=== PATIENT | male | born 1960 | race Caucasian/White ===

== ENCOUNTER 2017-07-24 18:32 | Observation (INO) | payer BC ==
[~2017-07-24 18:32] MED LIST: DIPRIVAN VIAL ONE; NEOSTIGMINE INJ ONE; NORCURON INJ 10 MG VIAL ONE; QUELICIN (OR ANECTINE) ONE; REGLAN INJ 10 MG VIAL ONE; ROBINUL ONE; SUPRANE IN ONE; VERSED ONE; XYLOCAINE 2 % (PLAIN) ONE; ZOFRAN INJ 4 MG VIAL ONE
[2017-07-24 18:39] VITALS: BMI 33.4
--- NOTE | 2017-07-24 18:53 | DR.ABDMALE ---
HPI - Time seen Time seen: 18:55 - PCP Primary Care Physician: rossana - HPI comment HPI Comment: PAIN ASSOCIATED WITH FEVER AND IS GETTING WORSE. - Complaint Chief Complaint Doctors Comments: RLQ ABDOMINAL PAIN SINCE THIS AM. Chief Complaint:: abd pain since this am, constant , and radiated to right side of abd. denies any n/v/d, last bm at lunch-normal. - Reviewed Nurses Notes Review: Yes - Mode of arrival Mode of Arrival: Ambulatory - Timing Onset of Chief Complaint: 07/24/17 Came on: Suddenly - Duration Duration: Constant Duration: Hours - Location Location: RLQ - Severity Severity: Moderate - Quality Quality: Sharp - Context Onset: Suddenly History of: None - Modifying factors Worsening Factors: Nothing Improving Factors: Nothing - Associated signs and symptoms Associated Signs and Symptoms: Other (FEVER) PMH - PMH Past Medical History: Yes Past Medical History: Hypertension Past Surgical History: Yes Surgical History: Ortho Surgery Past Surgical History Comment: rotator cuff bilat., hernia repair - Family History History of Family Medical Conditions: No - Social History Type of Tobacco Use: None Alcohol Use: Occasionally Do you use any recreational Drugs:: No Lives Where: Home - infectious screening Have you traveled outside the country in the last 6 months?: No Isolation: Standard ROS - Review of Systems Constitutional: Fever Eyes: No Symptoms Reported ENTM: No Symptoms Reported Respiratoy: No Symptoms Reported Cardiovascular: No Symptoms Reported Gastrointestinal/Abdominal: Abdominal Pain Neurological: No Symptoms Reported Musculoskeletal: No Symptoms Reported Integumentary: No Symptoms Reported Hematologic/Lymphatic: No Symptoms Reported Endocrine: No Symptoms Reported All Other Systems: Reviewed and Negative PE - Vital Signs Vital Signs: Temp Pulse Resp BP Pulse Ox 07/24/17 18:34 101.3 F H 92 H 18 158/85 97 - General Limitations: No Limitations General Appearance: Alert - Head Head Exam: Normal Inspection - Eyes Eye exam: Normal Appearance - ENT ENT Exam: Normal External Ear Exam - Neck Neck Exam: Trachea Midline. negative: Tenderness, Meningismus, Lymphadenopathy - Chest Chest Inspection: Symmetric Chest Wall Rise - Respiratory Respiratory Exam: Normal Lung Sounds Bilat Respiratory Exam: Bilateral Clear to Auscultation - Cardiovascular Cardiovascular Exam: Regular Rate, Normal Rhythm, Irregular Rhythm - Abdominal Exam Abdominal Exam: Normal Bowel Sounds, Soft, Tenderness Abdominal Tenderness: RLQ, Moderate - Rectal Rectal Exam: Deferred - Back Back Exam: Normal Inspection - Extremeties Extremities Exam: Normal Inspection - Exam: Male: Normal Inspection - Neurologic Neurological Exam: Alert, Oriented X3 - Psychiatric Psychiatric Exam: Normal Affect, Normal Mood - Skin Skin Exam: Normal Color MDM - Additional Information Obtained From Additional information provided by: Family - Differential Diagnosis Differential Diagnosis: Bowel Obstruction, Cholcystitis, Cholelethiasis, Diverticular disease, Gastritus/PUD, Urinary tract infection, Urolithiasis Course - Treatment Treatment: SEE ORDERS. - Education/Counseling Education/Counseling: Patient, Family, Education Educated On: Treatment, Diagnosis - Discharge Plan Condition: Stable - Follow ups/Referrals Follow ups/Referrals: APRYL SLATER [Primary Care Provider] - 3 days - Instructions
[2017-07-24 19:04] LABS: BILIRUBIN,URINE NEGATIVE (NEGATIVE); BLOOD/HEMOGLOBIN,URINE NEGATIVE (NEGATIVE); GLUCOSE, URINE NEGATIVE (NEGATIVE); KETONES,URINE NEGATIVE (NEGATIVE); LEUKOCYTE ESTERASE ,URINE NEGATIVE (NEGATIVE); NITRITES,URINE NEGATIVE (NEGATIVE); PROTEIN,URINE NEGATIVE (NEGATIVE); UROBILINOGEN,URINE NORMAL (NORMAL)
[2017-07-24] MEDS ORDERED: DEMEROL INJ IVP ONE (19:05)
[2017-07-24] MEDS ORDERED: ZOFRAN INJ 4 MG VIAL IVP ONE (19:05)
[2017-07-24] MEDS ORDERED: NS 1000 ML 1,000 ML ONE (19:11)
[2017-07-24] MEDS ORDERED: DEMEROL INJ ONE (19:12)
[2017-07-24] MEDS ORDERED: ZOFRAN INJ 4 MG VIAL ONE (19:12)
[2017-07-24 19:15] LABS: COLOR,URINE YELLOW (YELLOW)
[2017-07-24 19:16] LABS: APPEARANCE,URINE CLEAR (CLEAR)
[2017-07-24 19:18] LABS: BASOPHILS # (AUTO) 0.1 X10^3/uL (0.0-0.1); BASOPHILS % (AUTO) 0.7 % (0.2-1.0); EOSINOPHILS % (AUTO) 0.4 % (0.9-2.9); HEMATOCRIT 47.5 % (42.0-54.0); HEMOGLOBIN 16.1 g/dL (13.5-18.0); LYMPHOCYTES # (AUTO) 1.1 X10^3/uL (1.3-2.9); LYMPHOCYTES % (AUTO) 9.2 % (21.0-51.0); MEAN CORPUSCULAR HEMOGLOBIN 27.9 pg (27.0-34.0); MEAN CORPUSCULAR HGB CONC 33.9 g/dL (33.0-35.0); MEAN CORPUSCULAR VOLUME 82.4 fL (80.0-100.0); MONOCYTES % (AUTO) 8.4 % (0.0-13.0); NEUTROPHILS % (AUTO) 81.3 % (42.0-75.0); PLATELET COUNT 223 X10^3/uL (150.0-450.0); RED BLOOD COUNT 5.77 X10^6/uL (4.7-6.0); WHITE BLOOD COUNT 12.3 X10^3/uL (3.6-10.0)
[2017-07-24] MEDS: NS 1000 ML 1,000 ML IV SCH (19:20)
[2017-07-24 19:42] LABS: RBC,URINE NONE SEEN /HPF (NONE SEEN); SQUAMOUS EPITHELIAL CELL,UR RARE /HPF (NEGATIVE)
[2017-07-24 19:43] LABS: BACTERIA,URINE NEGATIVE /HPF (NEGATIVE)
[2017-07-24 19:47] LABS: ALANINE AMINOTRANSFERASE 217 Units/L (12-78); ALBUMIN 4.2 g/dL (3.4-5.0); ALKALINE PHOSPHATASE 114 Units/L (46-116); AMYLASE 60 Units/L (25-115); ASPARTATE AMINO TRANSFERASE 62 Units/L (15-37); BLOOD UREA NITROGEN 12 mg/dL (7-18); CALCIUM 8.9 mg/dL (8.5-10.1); CARBON DIOXIDE 27.4 mmol/L (21-32); CHLORIDE 100 mmol/L (98-107); CREATININE 1.32 mg/dL (0.70-1.30); LIPASE 156 Units/L (73-393); SODIUM 139 mmol/L (136-145); TOTAL PROTEIN 8.1 g/dL (6.4-8.2); eGFR BLACK RACES > 60 (>60); eGFR NON BLACK RACES 60 (>60)
[2017-07-24] MEDS ORDERED: TORADOL 30 MG VIAL IVP ONE (19:55)
[2017-07-24] MEDS ORDERED: TORADOL 30 MG VIAL ONE (19:56)
--- NOTE | 2017-07-24 22:13 | CT ---
HISTORY: Abdominal pains Study: CT abdomen and pelvis with contrast Comparison: None Technique: Multiple axial images of the abdomen and pelvis were obtained from the lung bases to the pubic symphy sis after the administration of IV contrast. Findings: The visualized portions of the lung bases are unremarkable. Imaging of the abdomen and pelvis demonstrates the tip of the appendix to be fluid filled and dilated , measuring up to 1.7 cm in diameter. There is also mild periappendiceal inflammatory stranding as we ll. These findings are concerning for acute appendicitis. The orifice and proximal aspect of the appe ndix is normal in appearance. No extraluminal free air is identified to suggest perforation. No organ ized fluid collection is visualized to suggest abscess. There is no free fluid present. The liver, pa ncreas, and spleen are unremarkable in appearance. The bilateral adrenal glands are unremarkable as w ell. Within the mid to inferior pole of the right kidney there is a simple peripelvic cyst. The kidne ys are otherwise unremarkable and without hydronephrosis.. The gallbladder is unremarkable in its CT appearance. The urinary bladder is grossly unremarkable. The bony structures are grossly intact. IMPRESSION: 1. Findings most consistent with acute appendicitis involving predominantly the appendiceal tip as d escribed above. Reported By:
[2017-07-24] MEDS ORDERED: LR 1000 ML IV 1,000 ML IV ONE (23:21)
[2017-07-24] MEDS ORDERED: ANCEF 1 GM IV PREMIX* 2 GM/100 ML BAG IV ONE (23:21)
[2017-07-24] MEDS ORDERED: FENTANYL INJ 250 mcg ONE (23:25)
[2017-07-24] MEDS ORDERED: REGLAN INJ 10 MG VIAL ONE (23:27)
[2017-07-24] MEDS ORDERED: NS IRRIGATION 1000 ML 1,000 ML IR ONE (23:47)
[2017-07-25] MEDS ORDERED: REGLAN INJ 10 MG VIAL IVP PRN (00:39)
[2017-07-25] MEDS ORDERED: ZOFRAN INJ 4 MG VIAL IV PRN (00:39)
[2017-07-25] MEDS ORDERED: PHENERGAN INJ 25 MG IVP PRN (00:39)
[2017-07-25] MEDS ORDERED: ZOFRAN INJ 4 MG VIAL IVP PRN (00:39)
[2017-07-25] MEDS ORDERED: BENADRYL INJ 50 MG VIAL IVP PRN (00:39)
[2017-07-25] MEDS ORDERED: DILAUDID INJ IVP PRN ×2 (00:39)
--- NOTE | 2017-07-25 00:58 | OR.GENERIC ---
Post-Op Note Generic - Post-Op Note Operative Report: diagnostic laparoscopy and appendectomy was done .. finding acute appendicitis with distended distal part of the appendix ,r/o neoplasm or carcinoid pending final pathology report . clear liquid in am..
[2017-07-25] MEDS ORDERED: D5 1/2 NS 1000 ML 1,000 ML IV SCH (01:00)
[2017-07-25] MEDS: NS 1000 ML 1,000 ML IV SCH (05:42)
[2017-07-25] MEDS ORDERED: ANCEF 1 GM IV PREMIX* 1 GM/50 ML BAG IV ONE (05:43)
[2017-07-25] MEDS ORDERED: ANCEF VIAL 1 GM 1 GM in NS 50 ML IV + SPIKE MINIBAG* 50 ML IV SCH (06:00)
[2017-07-25] MEDS ORDERED: LOVENOX INJ 30 MG SYR SC SCH (09:00)
[2017-07-25] MEDS ORDERED: LEVAQUIN PREMIX IV 750 MG 750 MG/150 ML BAG IV SCH (09:00)
[2017-07-25 12:22] VITALS: BP 133/72
== END 2017-07-25 12:40 | disposition home or self-care (01) ==
LOC: ER 18:44 → MED/SURG 23:23
PROVIDERS: ADMIT Internal Medicine; ATTEND Internal Medicine
PROC: 0DTJ4ZZ Resection of Appendix, Percutaneous Endoscopic Approach (ICD-10-PCS; principal; 2017-07-24 23:00)
DX: K35.89 Other acute appendicitis (principal); R10.31 Right lower quadrant pain; I10 Essential (primary) hypertension; R94.4 Abnormal results of kidney function studies
CPT/HCPCS: 36415; 74177; 80053; 81001; 82150; 83690; 85025; 93005; 93010; 96365; 96367; 96374; 96375; 99284; A4216; A4222; G0378; J0330; J0690; J1650; J1885; J1956; J2001; J2175; J2250; J2405; J2710; J2765; J3010; J3490; J7042; J7120